=== PATIENT | male | born 1935 | race Caucasian/White ===

== ENCOUNTER 2021-02-23 15:32 | Emergency (ER) | payer MEDICARE, OTHER ==
[2021-02-23] MEDS ORDERED: Sodium Chloride 0.9% 10 ML Syringe FLUSH PRN (16:10)
[2021-02-23] MEDS ORDERED: Metoprolol Tartrate 25 MG Tab PO ONE (16:11)
[2021-02-23] MEDS ORDERED: cloNIDine 0.1 MG Tab PO ONE (17:06)
[2021-02-23 18:12] VITALS: BP 139/96; PULSE 81
--- NOTE | 2021-02-28 20:06 | EDM.PDOC ---
ED HPI GENERAL MEDICAL PROBLEM - General Chief Complaint: Back Pain or Injury Stated Complaint: right flank pain Time Seen by Provider: 02/23/21 15:34 Source of Information: Reports: Patient History Limitations: Reports: No Limitations - History of Present Illness INITIAL COMMENTS - FREE TEXT/NARRATIVE: Pt. presents to ER with complaints of hypertension. He states that he was told to come to ER by his chiropractor, as he was noted to be hypertensive at an appointment today. His only complaint is of back pain which he has been experiencing for some time. Pt. denies any chest pain, shortness, of breath or lightheadedness. No fever or chills. No recent illness. Denies any lightheadedness or headache. Pt. thinks he forgot to take his medication this AM. Onset Date: 02/23/21 Location: Reports: Generalized right flank Pain Score (Numeric/FACES): 10 - Related Data Allergies Allergy/AdvReac Type Severity Reaction Status Date / Time No Known Drug Allergies Allergy Cannot Verified 02/24/21 11:28 Remember Home Meds: Home Meds Acetaminophen [Acetaminophen Extra Strength] 1,000 mg PO Q8H PRN 01/20/14 [History] ClonazePAM [KlonoPIN] 0.5 mg PO BEDTIME 01/20/14 [History] Levothyroxine [Synthroid] 50 mcg PO BEDTIME 01/20/14 [History] Losartan [Cozaar] 25 mg PO DAILY 01/20/14 [History] Warfarin [Coumadin] 5 mg PO SUTUTHSA@209901/20/14 [History] Cholecalciferol (Vitamin D3) [Vitamin D3] 1,000 unit PO Q48H 05/24/17 [History] Mecobalamin [B-12] 1,000 mcg SL Q48H 05/24/17 [History] Metoprolol Succinate 50 mg PO DAILY 05/24/17 [History] Warfarin [Coumadin] 2.5 mg PO MOWEFR@209905/24/17 [History] allopurinoL [Zyloprim] 100 mg PO DAILY 05/07/18 [History] Diclofenac Sodium [Voltaren 1% Gel] 2 gm TOP BID 02/23/21 [History] Nitroglycerin 0.4 mg SL ASDIRECTED PRN 02/23/21 [History] polyethylene glycoL 3350 [MiraLAX] 3 tsp PO DAILY PRN 02/23/21 [History] Past Medical History HEENT History: Reports: Cataract, Hard of Hearing, Impaired Vision Cardiovascular History: Reports: Afib, Heart Failure, Hypertension Respiratory History: Reports: Pneumonia, Recurrent, Sleep Apnea, SOB Gastrointestinal History: Reports: Chronic Diarrhea Other Gastrointestinal History: gluten free d/t IBS Genitourinary History: Reports: Renal Calculus Musculoskeletal History: Reports: Arthritis, Gout Neurological History: Reports: Headaches, Chronic, Head Trauma Other Neuro History: 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 - Infectious Disease History Infectious Disease History: Reports: Chicken Pox, Shingles - Past Surgical History HEENT Surgical History: Reports: Cataract Surgery Cardiovascular Surgical History: Reports: None Respiratory Surgical History: Reports: Thoracentesis GI Surgical History: Reports: Cholecystectomy, Colonoscopy Male Surgical History: Reports: Circumcision, Renal Calculus Endocrine Surgical History: Reports: Thyroidectomy Musculoskeletal Surgical History: Reports: Shoulder Surgery Social & Family History - Family History HEENT: Reports: None Cardiac: Reports: None Respiratory: Reports: None GI: Reports: None : Reports: Diabetic Nephropathy Musculoskeletal: Reports: Back pain, Chronic Neurological: Reports: None Psychiatric: Reports: None Endocrine/Metabolic: Reports: Diabetes, type II Hematologic: Reports: None Immunologic: Reports: None Dermatologic: Reports: None Oncologic: Reports: None - Tobacco Use Tobacco Use Status *Q: Never Tobacco User Second Hand Smoke Exposure: No - Caffeine Use Caffeine Use: Reports: None - Recreational Drug Use Recreational Drug Use: No - Living Situation & Occupation Living situation: Reports: Occupation: Retired ED ROS GENERAL - Review of Systems Review Of Systems: See Below Constitutional: Reports: No Symptoms HEENT: Reports: No Symptoms Respiratory: Reports: No Symptoms Cardiovascular: Reports: Blood Pressure Problem Endocrine: Reports: No Symptoms GI/Abdominal: Reports: No Symptoms : Reports: No Symptoms Musculoskeletal: Reports: No Symptoms Skin: Reports: No Symptoms Neurological: Reports: No Symptoms Psychiatric: Reports: No Symptoms Hematologic/Lymphatic: Reports: No Symptoms Immunologic: Reports: No Symptoms ED EXAM, GENERAL - Physical Exam Exam: See Below Exam Limited By: No Limitations General Appearance: Alert, WD/WN, No Apparent Distress Respiratory/Chest: No Respiratory Distress, Lungs Clear, Normal Breath Sounds, No Accessory Muscle Use, Chest Non-Tender Cardiovascular: No Edema, No JVD, Irregularly Irregular GI/Abdominal: Normal Bowel Sounds, Soft, Non-Tender, No Distention, No Mass (Male) Exam: Deferred Back Exam: Normal Inspection, Full Range of Motion Extremities: Normal Inspection, Normal Range of Motion Neurological: Alert, Oriented, CN II-XII Intact, Normal Cognition, Normal Gait, Normal Reflexes, No Motor/Sensory Deficits Psychiatric: Normal Affect, Normal Mood Skin Exam: Warm, Dry, Intact, Normal Color, No Rash Lymphatic: No Adenopathy #1 Interpretation Rhythm: A-Fib Course - Vital Signs Last Recorded V/S: Last Vital Signs Temp 35.9 C L 02/23/21 15:34 Pulse 81 02/23/21 17:55 Resp 21 H 02/23/21 17:55 BP 139/96 H 02/23/21 17:55 Pulse Ox 97 02/23/21 17:55 - Orders/Labs/Meds Labs: Laboratory Tests 02/23/21 02/23/21 02/23/21 Range/Units 16:15 16:15 16:15 WBC (4.0-10.2) K/uL RBC (4.33-5.41) M/uL Hgb (13.1-16.8) g/dL Hct (39.0-49.0) % MCV (84.0-98.0) fL MCH (28.2-33.3) pg MCHC (31.7-36.0) g/dL RDW (11.2-14.1) % Plt Count (150-350) K/uL Neut % (Auto) (45.0-80.0) % Lymph % (Auto) (10.0-50.0) % [place] % (Auto) (2.0-14.0) % Eos % (Auto) (0.0-5.0) % Baso % (Auto) (0.0-2.0) % Neut # (Auto) (1.40-7.00) K/uL Lymph # (Auto) (0.50-3.50) K/uL [place] # (Auto) (0.00-1.00) K/uL Eos # (Auto) (0.00-0.50) K/uL Baso # (Auto) (0.00-0.20) K/uL PT 25.2 H (9.6-11.3) SEC INR 2.5 APTT 34.0 H (23.6-29.8) SEC Sodium (136-145) mmol/L Potassium (3.5-5.1) mmol/L Chloride (98-107) mmol/L Carbon Dioxide (21.0-32.0) mmol/L Anion Gap (7-15) meq/L BUN (7-18) mg/dL Creatinine (0.51-1.17) mg/dL Est Cr Clr Drug Dosing mL/min Estimated GFR (MDRD) mL/min Glucose (70-99) mg/dL Calcium (8.5-10.1) mg/dL Phosphorus 3.6 (2.6-4.7) mg/dL Magnesium 2.1 (1.8-2.4) mg/dL Total Bilirubin (0.2-1.0) mg/dL AST (15-37) U/L ALT (12-78) U/L Alkaline Phosphatase (46-116) IU/L Troponin I High Sens 8 (<=76) ng/L Total Protein (6.4-8.2) g/dL Albumin (3.4-5.0) g/dL TSH, Ultra Sensitive 1.754 (0.358-3.740) mIU/mL 02/23/21 02/23/21 Range/Units 16:15 16:15 WBC 7.7 (4.0-10.2) K/uL RBC 5.43 H (4.33-5.41) M/uL Hgb 16.7 (13.1-16.8) g/dL Hct 49.6 H (39.0-49.0) % MCV 91.3 (84.0-98.0) fL MCH 30.8 (28.2-33.3) pg MCHC 33.7 (31.7-36.0) g/dL RDW 15.0 H (11.2-14.1) % Plt Count 179 (150-350) K/uL Neut % (Auto) 74.1 (45.0-80.0) % Lymph % (Auto) 11.6 (10.0-50.0) % [place] % (Auto) 11.8 (2.0-14.0) % Eos % (Auto) 1.9 (0.0-5.0) % Baso % (Auto) 0.6 (0.0-2.0) % Neut # (Auto) 5.72 (1.40-7.00) K/uL Lymph # (Auto) 0.90 (0.50-3.50) K/uL [place] # (Auto) 0.91 (0.00-1.00) K/uL Eos # (Auto) 0.15 (0.00-0.50) K/uL Baso # (Auto) 0.05 (0.00-0.20) K/uL PT (9.6-11.3) SEC INR APTT (23.6-29.8) SEC Sodium 147 H (136-145) mmol/L Potassium 4.8 (3.5-5.1) mmol/L Chloride 111 H (98-107) mmol/L Carbon Dioxide 27.8 (21.0-32.0) mmol/L Anion Gap 13.0 (7-15) meq/L BUN 18 (7-18) mg/dL Creatinine 1.45 H (0.51-1.17) mg/dL Est Cr Clr Drug Dosing 36.69 mL/min Estimated GFR (MDRD) 46 mL/min Glucose 91 (70-99) mg/dL Calcium 8.9 (8.5-10.1) mg/dL Phosphorus (2.6-4.7) mg/dL Magnesium (1.8-2.4) mg/dL Total Bilirubin 0.9 (0.2-1.0) mg/dL AST 24 (15-37) U/L ALT 25 (12-78) U/L Alkaline Phosphatase 93 (46-116) IU/L Troponin I High Sens (<=76) ng/L Total Protein 7.0 (6.4-8.2) g/dL Albumin 3.5 (3.4-5.0) g/dL TSH, Ultra Sensitive (0.358-3.740) mIU/mL Meds: Medications Discontinued Medications Generic Name Dose Route Start Last Admin Trade Name Freq PRN Reason Stop Dose Admin Clonidine HCl 0.1 mg 02/23/21 17:06 02/23/21 17:10 Clonidine 0.1 Mg Tab PO 02/23/21 17:07 0.1 mg ONETIME ONE Administration Metoprolol Tartrate 25 mg 02/23/21 16:11 02/23/21 16:19 Metoprolol Tartrate 25 Mg Tab PO 02/23/21 16:12 25 mg ONETIME ONE Administration Sodium Chloride 10 ml 02/23/21 16:10 Sodium Chloride 0.9% 10 Ml Syringe FLUSH ASDIRECTED PRN Keep Vein Open - Re-Assessments/Exams Free Text/Narrative Re-Assessment/Exam: Pt. was given metoprolol tartrate 25mg PO in ER and eventually was given clonidine 0.1mg PO. BP improved from approx. 180/130 on admission to 139/96 at time of discharge. Departure - Departure Time of Disposition: 18:00 Disposition: Home, Self-Care 01 Clinical Impression: Hypertension - Discharge Information Instructions: Hypertension, Adult, [id number] Referrals: PCP,Unknown [Primary Care Provider] - Forms: ED Department Discharge Additional Instructions: Continue with current medications for now. Make sure you take them tomorrow morning. Follow-up tomorrow at clinic in [place] to get your blood pressure rechecked. I will be in contact with Dr. Paulino regarding your ER visit today. Sepsis Event Note (ED) - Evaluation Sepsis Screening Result: No Definite Risk - Assessment/Plan Plan: Continue with current medications for now. Make sure you take them tomorrow morning. Follow-up tomorrow at clinic in [place] to get your blood pressure rechecked. I will be in contact with Dr. Paulino regarding your ER visit today.
== END 2021-02-23 18:01 | disposition home or self-care (01) ==
LOC: LL.ED 15:32
DX: I11.0 Hypertensive heart disease with heart failure (principal); I50.9 Heart failure, unspecified; I48.91 Unspecified atrial fibrillation; M10.9 Gout, unspecified; E03.9 Hypothyroidism, unspecified; Z79.899 Other long term (current) drug therapy
CPT/HCPCS: 36415; 80053; 83735; 84100; 84443; 84484; 85025; 85610; 85730; 93005; 99283; A9270; 93010; 99284